=== PATIENT | male | born 1935 | race Caucasian/White ===

== ENCOUNTER → 2016-05-23 | Outpatient (CLI) | payer OTHER, MEDICARE ==
--- NOTE | 2016-05-24 13:38 | US ---
EXAM DATE: 05/23/16 PATIENT'S AGE: 81 Patient: ANDRESSA VELAZQUEZ Facility: [facility], [place] Site . Site : [id number] Study: US Head [id number] 12:08:05 PM Ordering Physician: Kolby Cruz Final Report: HISTORY: Abnormal thyroid function tests. Findings: Multiple grayscale static images from a thyroid ultrasound were evaluated. The isthmus measures 4.7 mm. The right lobe of thyroid measures 5.2 x 2.1 x 1.9 cm. The echotexture is homogeneous. The left lobe of the thyroid measures 4.7 x 2.2 x 1.9 cm. Echotexture is homogeneous. Impression: Normal appearance of the thyroid without mass lesion. Dictated by Sophia Richter MD @ May 23 2016 11:49PM (Electronic Signature) Report Signed by Proxy and Original Signed Document filed in the Medical Record. NIKOLASD
== END ==
LOC: MW.US 09:42
DX: R94.6 Abnormal results of thyroid function studies (principal)
CPT/HCPCS: 76536-26; 76536-50

== ENCOUNTER 2016-09-27 10:05 | Day surgery (SDC) | payer OTHER ==
[~2016-09-27 10:05] MED LIST: Lactated Ringers 1,000 ML IV SCH; Lidocaine 2% 5 ML SDV ONE; Propofol 200 MG/20 ML SDV ONE; fentaNYL 100 MCG/2 ML SDV ONE
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
[2016-09-27] MEDS ORDERED: Midazolam 1 MG/ML 2 ML SDV ONE (10:58)
--- NOTE | 2016-09-27 11:16 | PCM.POSTAN ---
POST ANESTHESIA ASSESSMENT - MENTAL STATUS Mental Status: Alert, Oriented - RESPIRATORY Respiratory Status: Respiratory Rate WNL, Airway Patent - CARDIOVASCULAR CV Status: Pulse Rate WNL, Blood Pressure Stable - GASTROINTESTINAL GI Status: No Symptoms - POST OP HYDRATION Hydration Status: Adequate & Stable
--- NOTE | 2016-09-27 11:17 | PCM48HPAN ---
Post Anesthesia Note - EVALUATION WITHIN 48HRS OF ANESTHETIC Vital Signs in Normal Range: Yes Patient Participated in Evaluation: Yes Respiratory Function Stable: Yes Airway Patent: Yes Cardiovascular Function Stable: Yes Hydration Status Stable: Yes Pain Control Satisfactory: Yes Nausea and Vomiting Control Satisfactory: Yes Mental Status Recovered: Yes
--- NOTE | 2016-09-27 13:13 | PCM.OPNOTE ---
- General Post-Op/Procedure Note Date of Surgery/Procedure: 09/27/16 Operative Procedure(s): egd w bx Findings: see dict [id number] Pre Op Diagnosis: dysphagia and abnormal esophagram Post-Op Diagnosis: Same Anesthesia Technique: Moderate Sedation Primary Surgeon: Narayan Choi Pathology: egd bx Complications: None Condition: Good Free Text/Narrative:: Intake & Output 09/26/16 09/27/16 09/27/16 22:59 06:59 14:59 Intake Total 350 Balance 350
--- NOTE | 2016-09-27 14:51 | OR ---
SURGEON: Narayan Choi MD DATE OF PROCEDURE: 09/27/2016 PREOPERATIVE DIAGNOSIS: Dysphagia and abnormal esophagogram. POSTOPERATIVE DIAGNOSIS: Acid reflux. PROCEDURE PERFORMED: Esophagogastroduodenoscopy with biopsy. COMPLICATIONS: None. FINDINGS: 1. The patient is easily sedated with BLINDSTITCH LAPEL PADDER and Diprivan. The patient is soundly snoring. 2. Proximal esophagus and oropharynx is totally normal in appearance and no stricture, inflammation, or ulceration. No stricture observed. Distal esophagus at GE junction at 40, shows a little bit of salmon color change consistent with acid reflux and carefully look at the distal esophagus at the GE junction, do not find any abnormality, but random biopsy x2 has been done because of the abnormal esophagogram and stomach rugae is normal in appearance and there is no bile, food, or blood observed and duodenum was grossly normal. Scope retrieved back to the stomach and retroflexed to look at the fundus of stomach, there was no hiatal hernia. Biopsy was done at antrum, body, and GE junction at 40, and sucked out the air and retrieved. DESCRIPTION OF PROCEDURE: The patient was taken to the endoscopy room, and with the BLINDSTITCH LAPEL PADDER, Diprivan was administered. A well-lubricated EGD scope was gently inserted through the oropharynx, down the esophagus, passing through the gastroesophageal junction, into the stomach. The mucosa was examined upon the passage. Any etiology will be noted. Once in the stomach, we continued to advance to the distal antrum, passed through the pylorus into the second portion of the duodenum. Again, the mucosa was examined for any abnormality and etiology. The scope was then retrieved back to the stomach and then retroflexed to look at the fundus of the stomach. If a biopsy was indicated, we will biopsy the antrum, body, and gastroesophageal junction. The air will be sucked out while the scope is retrieved to reduce the patient's discomfort. The patient tolerated the procedure well. There were no intraoperative complications. Dr. Choi was present through the whole procedure. Prior to surgery, a time-out had been called, the patient identified, procedure identified and antibiotic administered. FRANTZ / SHERI /[id number]
== END 2016-09-27 11:56 | disposition home or self-care (01) ==
LOC: MW.SDS 10:05
PROVIDERS: ATTEND Surgery
DX: K20.9 Esophagitis, unspecified (principal); E03.9 Hypothyroidism, unspecified; E11.9 Type 2 diabetes mellitus without complications; G89.4 Chronic pain syndrome; Z79.899 Other long term (current) drug therapy; Z98.52 Vasectomy status; Z96.649 Presence of unspecified artificial hip joint
CPT/HCPCS: 43239; J2250; J3010; J7120; 00740; 88305; 88312; J2704

== ENCOUNTER 2021-01-11 11:27 | Emergency (ER) | payer OTHER, MEDICARE ==
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
[2021-01-11] MEDS ORDERED: Furosemide 40 MG/4 ML VIAL IVPUSH ONE (15:05)
--- NOTE | 2021-01-11 15:26 | CR ---
INDICATION: Lower extremity swelling. Possible CHF. TECHNIQUE: Chest 1 views. COMPARISON: 02/16/2012. FINDINGS: Cardiovascular and mediastinum: Heart size and vasculature are normal in caliber and appearance. Lungs and pleural spaces: Lungs are clear. No sign of infiltrate or mass. No sign of pleural effusion. No pneumothorax. Bones and soft tissues: No significant findings. IMPRESSION: No acute findings and no significant changes from the prior exam. No signs of CHF. Dictated by Luis Eduardo Blackwell MD @ 01/11/2021 3:23:56 PM (Electronically Signed)
[2021-01-11 15:57] LABS: CARBON DIOXIDE,CO2 28.4 mmol/L (21.0-32.0); POTASSIUM,K 4.4 mmol/L (3.5-5.1)
== END 2021-01-11 17:15 | disposition home or self-care (01) ==
LOC: MW.ED 11:27
DX: R60.0 Localized edema (principal); E03.9 Hypothyroidism, unspecified; E66.9 Obesity, unspecified; Z68.27 Body mass index [BMI] 27.0-27.9, adult; Z79.899 Other long term (current) drug therapy
CPT/HCPCS: 36415; 71045; 80053; 82550; 83880; 85025; 85610; 85730; 96374; 99284; J1940

== ENCOUNTER 2021-04-08 19:33 | Emergency (ER) | payer OTHER, MEDICARE ==
[2021-04-08] MEDS ORDERED: Sodium Chloride 0.9% 10 ML Syringe FLUSH PRN (19:47)
[2021-04-08] MEDS ORDERED: Sodium Chloride 0.9% 2.5 ML Syringe FLUSH PRN (19:47)
[2021-04-08 20:36] LABS: CARBON DIOXIDE,CO2 29.7 mmol/L (21.0-32.0); POTASSIUM,K 4.4 mmol/L (3.5-5.1)
[2021-04-08] MEDS ORDERED: Iopamidol 755 MG/ML 500 ML Multipack Bottle IVPUSH ONE (20:44)
[2021-04-08 20:52] LABS: CORONAVIRUS COVID-19 NAA NEGATIVE (NEGATIVE); INFLUENZA A NAA NEGATIVE (NEGATIVE); INFLUENZA B NAA NEGATIVE (NEGATIVE)
== END 2021-04-08 22:33 | disposition home or self-care (01) ==
LOC: MW.ED 19:33
DX: I50.9 Heart failure, unspecified (principal); I48.91 Unspecified atrial fibrillation; E03.9 Hypothyroidism, unspecified; E66.9 Obesity, unspecified; N40.0 Benign prostatic hyperplasia without lower urinary tract symptoms; Z68.31 Body mass index [BMI] 31.0-31.9, adult; Z79.01 Long term (current) use of anticoagulants; Z20.822 Contact with and (suspected) exposure to COVID-19
CPT/HCPCS: 0240U; 36415; 71045; 71275; 80053; 81003; 83880; 85025; 85379; 85610; 93005; 99285; Q9967

== ENCOUNTER 2022-06-21 11:32 | Inpatient (IN) | payer OTHER, MEDICARE ==
[2022-06-21] MEDS ORDERED: Sodium Chloride 0.9% 10 ML Syringe FLUSH PRN ×2 (11:35→13:15)
[2022-06-21] MEDS ORDERED: Sodium Chloride 0.9% 2.5 ML Syringe FLUSH PRN ×2 (11:35→13:15)
[2022-06-21 12:01] LABS: BASOPHILS PERCENT AUTO 0.3 % (0.0-1.5); EOSINOPHILS ABSOLUTE AUTO 0.1 K/uL (0.0-0.7); EOSINOPHILS PERCENT AUTO 1.7 % (0.0-7.0); HEMATOCRIT 43.1 % (38.0-50.0); HEMOGLOBIN 14.1 g/dL (13.0-17.0); LYMPHOCYTES ABSOLUTE AUTO 0.5 K/uL (0.6-2.4); LYMPHOCYTES PERCENT AUTO 7.2 % (16.0-40.0); MEAN CORPUSCULAR HEMOGLOBIN 32.8 pg (27.0-32.0); MEAN CORPUSCULAR HGB CONC 32.7 g/dL (31.0-37.0); MEAN CORPUSCULAR VOLUME 100.2 fL (80.0-98.0); MONOCYTES ABSOLUTE AUTO 0.9 K/uL (0.0-0.8); MONOCYTES PERCENT AUTO 14.5 % (0.0-15.0); NEUTROPHILS ABSOLUTE AUTO 4.8 K/uL (1.4-5.7); NEUTROPHILS PERCENT AUTO 76.3 % (48.0-80.0); PLATELET COUNT,PLT 201 K/uL (150-400); WHITE BLOOD CELL COUNT,WBC 6.29 K/uL (4.0-11.0)
[2022-06-21 12:36] LABS: A/G RATIO 0.7 (0.9-1.6); ALBUMIN 3.7 g/dL (3.4-5.0); CARBON DIOXIDE,CO2 27.6 mmol/L (21.0-32.0); CREATININE 1.3 mg/dL (0.8-1.3); EST CRCL DRUG DOSING (CG) 45.6 mL/min; POTASSIUM,K 4.5 mmol/L (3.5-5.1); PROTEIN TOTAL,TP 8.8 g/dL (6.4-8.2)
[2022-06-21 12:38] LABS: LACTIC ACID 0.6 mmol/L (0.4-2.0)
[2022-06-21 12:39] LABS: CORONAVIRUS COVID-19 NAA POSITIVE (NEGATIVE); INFLUENZA A NAA NEGATIVE (NEGATIVE); INFLUENZA B NAA NEGATIVE (NEGATIVE); RESPIRATORY SYNCYTIAL VIR NAA NEGATIVE (NEGATIVE)
[2022-06-21 12:46] LABS: INR 1.36 (0.86-1.11)
[2022-06-21] MEDS ORDERED: Ondansetron 4 MG/2 ML SDV IVPUSH PRN (13:15)
[2022-06-21] MEDS ORDERED: Acetaminophen 325 MG Tab PO PRN (13:15)
[2022-06-21] MEDS ORDERED: Albuterol/Ipratropium 3.0-0.5 MG/3 ML Neb Soln NEB PRN (14:00)
[2022-06-21] MEDS ORDERED: REMDESIVIR 200 MG in Sodium Chloride 0.9% 250 ML IV ONE (14:00)
[2022-06-21] MEDS ORDERED: LORazepam 2 MG/ML SDV IVPUSH PRN (14:09)
[2022-06-21] MEDS ORDERED: guaiFENesin/Dextromethorphan 100-10 MG/5 ML Soln 10 ML Cup PO PRN (14:10)
[2022-06-21] MEDS ORDERED: Benzonatate 100 MG Cap PO PRN (14:10)
[2022-06-21] MEDS ORDERED: Warfarin 5 MG Tab PO SCH (14:30)
[2022-06-21] MEDS: Warfarin Sliding Scale SCH (14:52)
[2022-06-21] MEDS: Folic Acid 1 MG Tab PO SCH (20:34)
[2022-06-21] MEDS: Thiamine 100 MG Tab PO SCH (20:34)
[2022-06-22] MEDS: Levothyroxine 100 MCG Tab PO SCH (06:29)
[2022-06-22 06:44] LABS: INR 1.27 (0.86-1.11)
[2022-06-22 06:59] LABS: BASOPHILS PERCENT AUTO 0.4 % (0.0-1.5); EOSINOPHILS PERCENT AUTO 0.6 % (0.0-7.0); HEMATOCRIT 43.6 % (38.0-50.0); HEMOGLOBIN 14.8 g/dL (13.0-17.0); LYMPHOCYTES ABSOLUTE AUTO 0.7 K/uL (0.6-2.4); LYMPHOCYTES PERCENT AUTO 13.7 % (16.0-40.0); MEAN CORPUSCULAR HEMOGLOBIN 33.2 pg (27.0-32.0); MEAN CORPUSCULAR HGB CONC 33.9 g/dL (31.0-37.0); MEAN CORPUSCULAR VOLUME 97.8 fL (80.0-98.0); MONOCYTES ABSOLUTE AUTO 1.1 K/uL (0.0-0.8); NEUTROPHILS ABSOLUTE AUTO 3.1 K/uL (1.4-5.7); NEUTROPHILS PERCENT AUTO 63.3 % (48.0-80.0); PLATELET COUNT,PLT 193 K/uL (150-400); RED BLOOD CELL COUNT 4.46 M/uL (4.50-5.90); WHITE BLOOD CELL COUNT,WBC 4.82 K/uL (4.0-11.0)
[2022-06-22 07:00] LABS: A/G RATIO 0.7 (0.9-1.6); ALBUMIN 3.4 g/dL (3.4-5.0); BILIRUBIN TOTAL 0.9 mg/dL (0.2-1.0); CALCIUM 8.8 mg/dL (8.5-10.1); CARBON DIOXIDE,CO2 26.8 mmol/L (21.0-32.0); CREATININE 1.2 mg/dL (0.8-1.3); EST CRCL DRUG DOSING (CG) 49.4 mL/min; MAGNESIUM 2.1 mg/dL (1.8-2.4); PHOSPHORUS 3.2 mg/dL (2.6-4.7); POTASSIUM,K 4.8 mmol/L (3.5-5.1); PROTEIN TOTAL,TP 8.4 g/dL (6.4-8.2)
[2022-06-22] MEDS: Furosemide 40 MG Tab PO SCH (08:31)
[2022-06-22] MEDS: Diltiazem 120 MG Cap.CD PO SCH (08:32)
[2022-06-22 12:15] LABS: APPEARANCE,URINE CLEAR; BILIRUBIN,URINE NEGATIVE (NEGATIVE); COLOR,URINE YELLOW; GLUCOSE,URINE NEGATIVE (NEGATIVE); KETONES,URINE TRACE mg/dL (NEGATIVE); LEUKOCYTE ESTERASE,URINE NEGATIVE (NEGATIVE); NITRITE,URINE NEGATIVE (NEGATIVE); OCCULT BLOOD,URINE SMALL (NEGATIVE); PROTEIN,URINE NEGATIVE (NEGATIVE); UROBILINOGEN,URINE 0.2 EU/dL (<2.0)
[2022-06-22 12:34] LABS: EPITHELIAL CELLS,URINE FEW (NONE-FEW); SQUAMOUS EPITHELIAL CELLS,UR FEW; WBC,URINE NONE SEEN (0-5/HPF)
[2022-06-22 12:35] LABS: BACTERIA,URINE FEW (NEGATIVE); MUCUS,URINE FEW (NONE-MOD)
[2022-06-22] MEDS: Warfarin Sliding Scale SCH (13:27)
[2022-06-22] MEDS ORDERED: REMDESIVIR 100 MG in Sodium Chloride 0.9% 100 ML IV SCH (14:00)
[2022-06-22] MEDS ORDERED: Warfarin 5 MG, Warfarin 2.5 MG PO ONE ×2 (14:00)
[2022-06-22] MEDS: Folic Acid 1 MG Tab PO SCH (21:26)
[2022-06-22] MEDS: Thiamine 100 MG Tab PO SCH (21:26)
[2022-06-23 06:02] LABS: INR 1.33 (0.86-1.11)
[2022-06-23] MEDS: Levothyroxine 100 MCG Tab PO SCH ×2 (06:12→06:30)
[2022-06-23] MEDS: Diltiazem 120 MG Cap.CD PO SCH (08:43)
[2022-06-23] MEDS: Furosemide 40 MG Tab PO SCH (08:45)
[2022-06-23] MEDS ORDERED: REMDESIVIR 100 MG in Sodium Chloride 0.9% 100 ML IV SCH (10:45)
[2022-06-23] MEDS ORDERED: Warfarin 5 MG, Warfarin 2.5 MG PO ONE ×2 (11:15)
[2022-06-23] MEDS: Warfarin Sliding Scale SCH (14:05)
== END 2022-06-23 13:30 | disposition home or self-care (01) | DRG 178 ==
LOC: MW.ED 11:32 → MW.MS 13:01
PROVIDERS: ADMIT Internal Medicine; ATTEND Internal Medicine
PROC: XW033E5 Introduction of Remdesivir Anti-infective into Peripheral Vein, Percutaneous Approach, New Technology Group 5 (ICD-10-PCS; principal; 2022-06-21)
PROC: 8E0ZXY6 Isolation (ICD-10-PCS; 2022-06-21)
DX: U07.1 COVID-19 (principal); I48.21 Permanent atrial fibrillation; F10.10 Alcohol abuse, uncomplicated; I25.10 Atherosclerotic heart disease of native coronary artery without angina pectoris; N40.0 Benign prostatic hyperplasia without lower urinary tract symptoms; E03.9 Hypothyroidism, unspecified; E66.9 Obesity, unspecified; Z96.649 Presence of unspecified artificial hip joint; Z96.619 Presence of unspecified artificial shoulder joint; Z79.890 Hormone replacement therapy; Z91.148 Patient's other noncompliance with medication regimen for other reason; Z68.25 Body mass index [BMI] 25.0-25.9, adult; Z79.01 Long term (current) use of anticoagulants; Z79.899 Other long term (current) drug therapy
CPT/HCPCS: 0241U; 36415; 71046; 71046-26; 80053; 81001; 83605; 83735; 83880; 84100; 84484; 85025; 85610; 87040; 93005; 93010; 97116-GP; 97161-GP; 99222; 99232; 99238; 99284; 99285; A9270-GY; J0248; J3490; J7050

== ENCOUNTER 2022-08-08 10:14 | Emergency (ER) | payer MEDICARE, OTHER ==
[2022-08-08 11:40] LABS: APPEARANCE,URINE CLEAR; BILIRUBIN,URINE NEGATIVE (NEGATIVE); COLOR,URINE YELLOW; GLUCOSE,URINE NEGATIVE (NEGATIVE); KETONES,URINE NEGATIVE (NEGATIVE); LEUKOCYTE ESTERASE,URINE NEGATIVE (NEGATIVE); NITRITE,URINE NEGATIVE (NEGATIVE); OCCULT BLOOD,URINE NEGATIVE (NEGATIVE); PROTEIN,URINE NEGATIVE (NEGATIVE)
[2022-08-08 11:43] LABS: BASOPHILS ABSOLUTE AUTO 0.1 K/uL (0.0-0.1); BASOPHILS PERCENT AUTO 0.8 % (0.0-1.5); EOSINOPHILS ABSOLUTE AUTO 0.5 K/uL (0.0-0.7); EOSINOPHILS PERCENT AUTO 7.6 % (0.0-7.0); HEMATOCRIT 43.8 % (38.0-50.0); HEMOGLOBIN 14.5 g/dL (13.0-17.0); LYMPHOCYTES PERCENT AUTO 16.9 % (16.0-40.0); MEAN CORPUSCULAR HEMOGLOBIN 32.4 pg (27.0-32.0); MEAN CORPUSCULAR HGB CONC 33.1 g/dL (31.0-37.0); MEAN CORPUSCULAR VOLUME 97.8 fL (80.0-98.0); MONOCYTES ABSOLUTE AUTO 0.7 K/uL (0.0-0.8); MONOCYTES PERCENT AUTO 11.5 % (0.0-15.0); NEUTROPHILS ABSOLUTE AUTO 3.7 K/uL (1.4-5.7); NEUTROPHILS PERCENT AUTO 63.2 % (48.0-80.0); NRBC ABSOLUTE 0 K/uL; PLATELET COUNT,PLT 231 K/uL (150-400); RED BLOOD CELL COUNT 4.48 M/uL (4.50-5.90)
[2022-08-08 12:19] LABS: A/G RATIO 0.7 (0.9-1.6); ALBUMIN 3.5 g/dL (3.4-5.0); BILIRUBIN TOTAL 0.7 mg/dL (0.2-1.0); CALCIUM 8.9 mg/dL (8.5-10.1); CARBON DIOXIDE,CO2 27.7 mmol/L (21.0-32.0); CREATININE 1.2 mg/dL (0.8-1.3); EST CRCL DRUG DOSING (CG) 49.4 mL/min; POTASSIUM,K 4.2 mmol/L (3.5-5.1); PROTEIN TOTAL,TP 8.3 g/dL (6.4-8.2)
[2022-08-08 12:30] LABS: MAGNESIUM 2.1 mg/dL (1.8-2.4); TSH ULTRASENSITIVE 3.26 uIU/mL (0.36-3.74)
== END 2022-08-08 13:42 | disposition home or self-care (01) ==
LOC: MW.ED 10:14
DX: R53.1 Weakness (principal); I48.91 Unspecified atrial fibrillation; E66.9 Obesity, unspecified; Z79.01 Long term (current) use of anticoagulants
CPT/HCPCS: 36415; 71046; 71046-26; 80053; 81003; 83735; 84443; 85025; 93005; 93010; 99285

== ENCOUNTER 2022-09-16 17:31 | Observation (INO) | payer MEDICARE ==
[2022-09-16] MEDS ORDERED: Sodium Chloride 0.9% 2.5 ML Syringe FLUSH PRN ×2 (17:39)
[2022-09-16] MEDS ORDERED: Sodium Chloride 0.9% 10 ML Syringe FLUSH PRN ×2 (17:39)
[2022-09-16] MEDS ORDERED: Diphtheria,Pertussis(Acell),Tetanus Vaccine 0.5 ML Syringe IM ONE (17:39)
[2022-09-16] MEDS ORDERED: Morphine 4 MG/ML Syringe IVPUSH ONE (17:41)
[2022-09-16] MEDS ORDERED: Ondansetron 4 MG/2 ML SDV IVPUSH ONE (17:41)
[2022-09-16 18:25] LABS: BASOPHILS PERCENT AUTO 0.7 % (0.0-1.5); EOSINOPHILS ABSOLUTE AUTO 0.5 K/uL (0.0-0.7); EOSINOPHILS PERCENT AUTO 7.6 % (0.0-7.0); HEMATOCRIT 43.6 % (38.0-50.0); HEMOGLOBIN 14.7 g/dL (13.0-17.0); LYMPHOCYTES ABSOLUTE AUTO 1.4 K/uL (0.6-2.4); LYMPHOCYTES PERCENT AUTO 24.2 % (16.0-40.0); MEAN CORPUSCULAR HEMOGLOBIN 32.7 pg (27.0-32.0); MEAN CORPUSCULAR HGB CONC 33.7 g/dL (31.0-37.0); MEAN CORPUSCULAR VOLUME 96.9 fL (80.0-98.0); MONOCYTES ABSOLUTE AUTO 0.6 K/uL (0.0-0.8); MONOCYTES PERCENT AUTO 10.2 % (0.0-15.0); NEUTROPHILS ABSOLUTE AUTO 3.4 K/uL (1.4-5.7); NEUTROPHILS PERCENT AUTO 57.3 % (48.0-80.0); NRBC ABSOLUTE 0 K/uL; PLATELET COUNT,PLT 226 K/uL (150-400); WHITE BLOOD CELL COUNT,WBC 5.96 K/uL (4.0-11.0)
[2022-09-16 18:56] LABS: INR 1.19 (0.86-1.11)
[2022-09-16 19:09] LABS: A/G RATIO 0.7 (0.9-1.6); ALBUMIN 3.7 g/dL (3.4-5.0); BILIRUBIN TOTAL 0.4 mg/dL (0.2-1.0); CALCIUM 8.6 mg/dL (8.5-10.1); CARBON DIOXIDE,CO2 26.6 mmol/L (21.0-32.0); CREATININE 1.2 mg/dL (0.8-1.3); EST CRCL DRUG DOSING (CG) 49.4 mL/min; POTASSIUM,K 4.3 mmol/L (3.5-5.1); PROTEIN TOTAL,TP 8.7 g/dL (6.4-8.2)
[2022-09-16 21:33] LABS: BASOPHILS ABSOLUTE AUTO 0.1 K/uL (0.0-0.1); BASOPHILS PERCENT AUTO 0.9 % (0.0-1.5); EOSINOPHILS ABSOLUTE AUTO 0.5 K/uL (0.0-0.7); EOSINOPHILS PERCENT AUTO 6.9 % (0.0-7.0); HEMATOCRIT 39.3 % (38.0-50.0); HEMOGLOBIN 13.1 g/dL (13.0-17.0); LYMPHOCYTES ABSOLUTE AUTO 1.7 K/uL (0.6-2.4); LYMPHOCYTES PERCENT AUTO 25.6 % (16.0-40.0); MEAN CORPUSCULAR HEMOGLOBIN 32.2 pg (27.0-32.0); MEAN CORPUSCULAR HGB CONC 33.3 g/dL (31.0-37.0); MEAN CORPUSCULAR VOLUME 96.6 fL (80.0-98.0); MONOCYTES ABSOLUTE AUTO 0.6 K/uL (0.0-0.8); NEUTROPHILS ABSOLUTE AUTO 3.8 K/uL (1.4-5.7); NEUTROPHILS PERCENT AUTO 57.6 % (48.0-80.0); NRBC ABSOLUTE 0 K/uL; PLATELET COUNT,PLT 211 K/uL (150-400); RED BLOOD CELL COUNT 4.07 M/uL (4.50-5.90); WHITE BLOOD CELL COUNT,WBC 6.52 K/uL (4.0-11.0)
[2022-09-17 04:04] LABS: BASOPHILS PERCENT AUTO 0.3 % (0.0-1.5); EOSINOPHILS ABSOLUTE AUTO 0.1 K/uL (0.0-0.7); EOSINOPHILS PERCENT AUTO 0.9 % (0.0-7.0); HEMOGLOBIN 13.8 g/dL (13.0-17.0); LYMPHOCYTES ABSOLUTE AUTO 0.9 K/uL (0.6-2.4); MEAN CORPUSCULAR HEMOGLOBIN 32.5 pg (27.0-32.0); MEAN CORPUSCULAR HGB CONC 33.7 g/dL (31.0-37.0); MEAN CORPUSCULAR VOLUME 96.7 fL (80.0-98.0); MONOCYTES ABSOLUTE AUTO 0.8 K/uL (0.0-0.8); MONOCYTES PERCENT AUTO 9.2 % (0.0-15.0); NEUTROPHILS ABSOLUTE AUTO 6.9 K/uL (1.4-5.7); NEUTROPHILS PERCENT AUTO 79.6 % (48.0-80.0); NRBC ABSOLUTE 0 K/uL; PLATELET COUNT,PLT 201 K/uL (150-400); RED BLOOD CELL COUNT 4.24 M/uL (4.50-5.90); WHITE BLOOD CELL COUNT,WBC 8.63 K/uL (4.0-11.0)
[2022-09-17 04:34] LABS: APPEARANCE,URINE CLEAR; BILIRUBIN,URINE NEGATIVE (NEGATIVE); COLOR,URINE YELLOW; GLUCOSE,URINE NEGATIVE (NEGATIVE); KETONES,URINE NEGATIVE (NEGATIVE); LEUKOCYTE ESTERASE,URINE NEGATIVE (NEGATIVE); NITRITE,URINE NEGATIVE (NEGATIVE); OCCULT BLOOD,URINE SMALL (NEGATIVE); PROTEIN,URINE NEGATIVE (NEGATIVE)
[2022-09-17 05:02] LABS: BACTERIA,URINE FEW (NEGATIVE); EPITHELIAL CELLS,URINE RARE (NONE-FEW); WBC,URINE 0-2 (0-5/HPF)
[2022-09-17] MEDS ORDERED: Sodium Chloride 0.9% 2.5 ML Syringe FLUSH PRN (08:46)
[2022-09-17] MEDS ORDERED: Ondansetron 4 MG/2 ML SDV IVPUSH PRN (08:46)
[2022-09-17] MEDS ORDERED: LORazepam 2 MG/ML SDV IVPUSH PRN ×2 (08:46→12:54)
[2022-09-17] MEDS ORDERED: Acetaminophen 325 MG Tab PO PRN (08:46)
[2022-09-17] MEDS ORDERED: Polyethylene Glycol 3350 Powder 17 GM Packet PO PRN (08:46)
[2022-09-17] MEDS ORDERED: Albuterol/Ipratropium 3.0-0.5 MG/3 ML Neb Soln NEB PRN (08:46)
[2022-09-17] MEDS ORDERED: Sodium Chloride 0.9% 10 ML Syringe FLUSH PRN (08:46)
[2022-09-17] MEDS ORDERED: Iopamidol 755 Mg/ML 100 ML Bottle IVPUSH ONE (11:02)
[2022-09-17] MEDS: Diltiazem 120 MG Cap.CD PO SCH (16:05)
[2022-09-17] MEDS ORDERED: Folic Acid 1 MG Tab PO SCH (21:00)
[2022-09-17] MEDS ORDERED: Thiamine 100 MG Tab PO SCH (21:00)
[2022-09-18 05:54] LABS: BASOPHILS PERCENT AUTO 0.6 % (0.0-1.5); EOSINOPHILS ABSOLUTE AUTO 0.3 K/uL (0.0-0.7); EOSINOPHILS PERCENT AUTO 3.7 % (0.0-7.0); HEMATOCRIT 36.7 % (38.0-50.0); HEMOGLOBIN 11.9 g/dL (13.0-17.0); LYMPHOCYTES ABSOLUTE AUTO 1.5 K/uL (0.6-2.4); LYMPHOCYTES PERCENT AUTO 20.9 % (16.0-40.0); MEAN CORPUSCULAR HEMOGLOBIN 31.3 pg (27.0-32.0); MEAN CORPUSCULAR HGB CONC 32.4 g/dL (31.0-37.0); MEAN CORPUSCULAR VOLUME 96.6 fL (80.0-98.0); MONOCYTES ABSOLUTE AUTO 0.6 K/uL (0.0-0.8); MONOCYTES PERCENT AUTO 9.1 % (0.0-15.0); NEUTROPHILS ABSOLUTE AUTO 4.6 K/uL (1.4-5.7); NEUTROPHILS PERCENT AUTO 65.7 % (48.0-80.0); NRBC ABSOLUTE 0 K/uL; PLATELET COUNT,PLT 207 K/uL (150-400); WHITE BLOOD CELL COUNT,WBC 7.04 K/uL (4.0-11.0)
[2022-09-18 06:14] LABS: CALCIUM 8.3 mg/dL (8.5-10.1); CARBON DIOXIDE,CO2 27.5 mmol/L (21.0-32.0); CREATININE 1.2 mg/dL (0.8-1.3); EST CRCL DRUG DOSING (CG) 49.4 mL/min; POTASSIUM,K 4.5 mmol/L (3.5-5.1)
[2022-09-18] MEDS: Levothyroxine 100 MCG Tab PO SCH ×2 (06:24→06:39)
[2022-09-18] MEDS: Diltiazem 120 MG Cap.CD PO SCH (08:04)
== END 2022-09-18 09:15 | disposition left against medical advice (07) ==
LOC: MW.ED 17:31 → MW.MS 09-17 04:21
PROVIDERS: ADMIT Family Medicine; ATTEND Family Medicine
DX: S81.812A Laceration without foreign body, left lower leg, initial encounter (principal); I50.9 Heart failure, unspecified; R53.1 Weakness; I48.21 Permanent atrial fibrillation; E03.9 Hypothyroidism, unspecified; E66.9 Obesity, unspecified; R55 Syncope and collapse; Z79.01 Long term (current) use of anticoagulants; F10.10 Alcohol abuse, uncomplicated; W18.30XA Fall on same level, unspecified, initial encounter; Z86.16 Personal history of COVID-19; Z79.890 Hormone replacement therapy; Z68.25 Body mass index [BMI] 25.0-25.9, adult; Z96.649 Presence of unspecified artificial hip joint; Z96.619 Presence of unspecified artificial shoulder joint; Z79.899 Other long term (current) drug therapy; Z90.89 Acquired absence of other organs
CPT/HCPCS: 12005; 36415; 70450; 71045; 72125; 72170; 73590; 73701; 80048; 80053; 80307; 81001; 82947; 83735; 85025; 85610; 86850; 86900; 86901; 90471; 90715; 93005; 96374; 96375; 99285; A9270; G0378; J2270; J2405; J3490; Q9967; 93010; 99284

== ENCOUNTER 2022-09-19 10:16 | Emergency (ER) | payer MEDICARE | END 2022-09-19 11:49 | disposition home or self-care (01) | LOC: MW.ED 10:16 | DX: S81.812D Laceration without foreign body, left lower leg, subsequent encounter (principal); Z48.01 Encounter for change or removal of surgical wound dressing; I48.91 Unspecified atrial fibrillation; E03.9 Hypothyroidism, unspecified; E66.9 Obesity, unspecified; Z68.26 Body mass index [BMI] 26.0-26.9, adult; Z79.01 Long term (current) use of anticoagulants; Z79.899 Other long term (current) drug therapy; W26.8XXD Contact with other sharp object(s), not elsewhere classified, subsequent encounter | CPT/HCPCS: 99282; 99283 ==

== ENCOUNTER 2023-01-15 12:45 | Emergency (ER) | payer MEDICARE ==
[2023-01-15 12:57] LABS: BASOPHILS ABSOLUTE AUTO 0.04 K/uL (0.00-0.20); BASOPHILS PERCENT AUTO 1.1 % (0.0-1.0); EOSINOPHILS ABSOLUTE AUTO 0.13 K/uL (0.00-0.45); EOSINOPHILS PERCENT AUTO 3.7 % (0.0-6.0); HEMATOCRIT 35.5 % (42.0-52.0); HEMOGLOBIN 11.5 g/dL (14.0-18.0); IMMATURE GRAN ABSOLUTE AUTO 0.03 K/uL (0.00-0.05); IMMATURE GRAN PERCENT AUTO 0.9 % (0.0-0.4); LYMPHOCYTES ABSOLUTE AUTO 0.73 K/uL (1.00-4.80); MEAN CORPUSCULAR HEMOGLOBIN 30.5 pg (28.0-32.0); MEAN CORPUSCULAR HGB CONC 32.4 g/dL (32.0-36.0); MEAN CORPUSCULAR VOLUME 94.2 fL (83.0-99.0); MEAN PLATELET VOLUME 10.5 fL (9.4-12.4); MONOCYTES ABSOLUTE AUTO 0.49 K/uL (0.00-0.80); MONOCYTES PERCENT AUTO 14.1 % (0.0-8.0); NEUTROPHILS ABSOLUTE AUTO 2.06 K/uL (1.80-7.70); NEUTROPHILS PERCENT AUTO 59.2 % (41.0-71.0); PLATELET COUNT,PLT 201 K/uL (150-400); RED BLOOD CELL COUNT 3.77 M/uL (4.52-5.90); WHITE BLOOD CELL COUNT,WBC 3.48 K/uL (3.9-11.3)
[2023-01-15 13:10] LABS: INR 1.83 (0.86-1.11)
[2023-01-15 13:25] LABS: A/G RATIO 0.7 (0.9-1.6); ALANINE AMINOTRANSFERASE,ALT 20 IU/L (14-63); ALBUMIN 3.3 g/dL (3.4-5.0); ALKALINE PHOSPHATASE 154 U/L (46-116); ASPARTATE AMNIOTRANSFERASE,AST 27 IU/L (15-37); BILIRUBIN TOTAL 1.4 mg/dL (0.2-1.0); BLOOD UREA NITROGEN,BUN 27 mg/dL (7.0-18.0); CALCIUM 8.8 mg/dL (8.5-10.1); CARBON DIOXIDE,CO2 27.8 mmol/L (21.0-32.0); CHLORIDE,CL 105 mmol/L (98-107); CREATININE 1.4 mg/dL (0.8-1.3); EST CRCL DRUG DOSING (CG) 42.34 mL/min; ESTIMATED GFR 49 mL/min (>60); ETHANOL BLOOD MEDICAL <3 mg/dL; GLUCOSE RANDOM 147 mg/dL (74-106); POTASSIUM,K 4.1 mmol/L (3.5-5.1); SODIUM,NA 138 mmol/L (136-148)
== END 2023-01-15 14:20 | disposition home or self-care (01) ==
LOC: MW.ED 12:45
DX: S09.90XA Unspecified injury of head, initial encounter (principal); I48.91 Unspecified atrial fibrillation; E03.9 Hypothyroidism, unspecified; E66.9 Obesity, unspecified; Z68.27 Body mass index [BMI] 27.0-27.9, adult; Z79.01 Long term (current) use of anticoagulants; Z79.899 Other long term (current) drug therapy; W01.198A Fall on same level from slipping, tripping and stumbling with subsequent striking against other object, initial encounter; Y93.01 Activity, walking, marching and hiking; Y92.59 Other trade areas as the place of occurrence of the external cause
CPT/HCPCS: 36415; 70450; 70450-26; 72125; 72125-26; 80053; 80307; 83735; 84484; 85025; 85610; 99282; 99285

== ENCOUNTER 2023-03-16 08:56 | Inpatient (IN) | payer OTHER, MEDICARE ==
[2023-03-16] MEDS ORDERED: Sodium Chloride 0.9% 10 ML Syringe FLUSH PRN (09:18)
[2023-03-16] MEDS ORDERED: Sodium Chloride 0.9% 2.5 ML Syringe FLUSH PRN (09:18)
[2023-03-16 09:30] LABS: HEMATOCRIT 37.3 % (42.0-52.0); HEMOGLOBIN 11.7 g/dL (14.0-18.0); MEAN CORPUSCULAR HEMOGLOBIN 30.5 pg (28.0-32.0); MEAN CORPUSCULAR HGB CONC 31.4 g/dL (32.0-36.0); MEAN CORPUSCULAR VOLUME 97.4 fL (83.0-99.0); MEAN PLATELET VOLUME 10.2 fL (9.4-12.4); PLATELET COUNT,PLT 190 K/uL (150-400); RED BLOOD CELL COUNT 3.83 M/uL (4.52-5.90); WHITE BLOOD CELL COUNT,WBC 2.45 K/uL (3.9-11.3)
[2023-03-16] MEDS ORDERED: Nitroglycerin 0.4 MG Tab.SL SL ONE (09:32)
[2023-03-16] MEDS ORDERED: Furosemide 40 MG/4 ML VIAL IVPUSH ONE (09:32)
[2023-03-16 09:49] LABS: INR 2.29 (0.86-1.11)
[2023-03-16 10:10] LABS: A/G RATIO 0.6 (0.9-1.6); ALBUMIN 3.2 g/dL (3.4-5.0); BILIRUBIN TOTAL 1.5 mg/dL (0.2-1.0); CALCIUM 8.7 mg/dL (8.5-10.1); CARBON DIOXIDE,CO2 27.7 mmol/L (21.0-32.0); CREATININE 1.5 mg/dL (0.8-1.3); EST CRCL DRUG DOSING (CG) 37.65 mL/min; POTASSIUM,K 4.2 mmol/L (3.5-5.1); PROTEIN TOTAL,TP 8.5 g/dL (6.4-8.2)
[2023-03-16 10:20] LABS: BAND ABSOLUTE MAN 0.02; BAND PERCENT MAN 1 %; BASOPHILS ABSOLUTE MAN 0.05 K/uL (0.00-0.20); BASOPHILS PERCENT MAN 2 % (0-1); EOSINOPHILS ABSOLUTE MAN 0.02 K/uL (0.00-0.45); EOSINOPHILS PERCENT MAN 1 % (0-6); LYMPHOCYTES ABSOLUTE MAN 0.61 K/uL (1.00-4.80); LYMPHOCYTES PERCENT MAN 25 % (24-44); MONOCYTES ABSOLUTE MAN 0.47 K/uL (0.00-0.80); MONOCYTES PERCENT MAN 19 % (0-8); SEG NEUTROPHILS ABSOLUTE MAN 1.27 K/uL (1.80-7.70); SEG NEUTROPHILS PERCENT MAN 52 % (41-71)
[2023-03-16 10:54] LABS: APPEARANCE,URINE CLEAR; BILIRUBIN,URINE NEGATIVE (NEGATIVE); COLOR,URINE YELLOW; GLUCOSE,URINE NEGATIVE (NEGATIVE); KETONES,URINE NEGATIVE (NEGATIVE); LEUKOCYTE ESTERASE,URINE NEGATIVE (NEGATIVE); NITRITE,URINE NEGATIVE (NEGATIVE); OCCULT BLOOD,URINE NEGATIVE (NEGATIVE); PROTEIN,URINE NEGATIVE (NEGATIVE)
[2023-03-16 11:30] LABS: INFLUENZA A NAA NEGATIVE (NEGATIVE); INFLUENZA B NAA NEGATIVE (NEGATIVE)
[2023-03-16] MEDS ORDERED: methylPREDNISolone Sodium Succinate 125 MG/2 ML SDV IVPUSH ONE (11:39)
[2023-03-16] MEDS ORDERED: Ipratropium 0.02% 0.5 MG/2.5 ML Neb Soln NEB ONE (11:39)
[2023-03-16] MEDS ORDERED: Albuterol 0.083% 2.5 MG/3 ML Neb Soln NEB ONE (11:46)
[2023-03-16] MEDS ORDERED: Iopamidol 755 MG/ML 500 ML Multipack Bottle IVPUSH STA (12:40)
[2023-03-16] MEDS ORDERED: Ondansetron 4 MG/2 ML SDV IVPUSH PRN (14:32)
[2023-03-16] MEDS ORDERED: Acetaminophen 325 MG Tab PO PRN (14:32)
[2023-03-16] MEDS ORDERED: Pantoprazole 40 MG in Sodium Chloride 0.9% 10 ML IVPUSH SCH (14:45)
[2023-03-16] MEDS: Azithromycin 500 MG in Sodium Chloride 0.9% 250 ML IV SCH (15:49)
[2023-03-16] MEDS: cefTRIAXone 1 GM in Sodium Chloride 0.9% 50 ML IV SCH (16:51)
[2023-03-16] MEDS: Albuterol/Ipratropium 3.0-0.5 MG/3 ML Neb Soln NEB SCH ×2 (17:42→21:00)
[2023-03-17] MEDS: Albuterol/Ipratropium 3.0-0.5 MG/3 ML Neb Soln NEB SCH (02:37)
[2023-03-17 06:04] LABS: HEMATOCRIT 33.8 % (42.0-52.0); HEMOGLOBIN 10.8 g/dL (14.0-18.0); MEAN CORPUSCULAR HEMOGLOBIN 30.4 pg (28.0-32.0); MEAN CORPUSCULAR VOLUME 95.2 fL (83.0-99.0); MEAN PLATELET VOLUME 10.2 fL (9.4-12.4); RED BLOOD CELL COUNT 3.55 M/uL (4.52-5.90); WHITE BLOOD CELL COUNT,WBC 1.91 K/uL (3.9-11.3)
[2023-03-17 06:43] LABS: BAND ABSOLUTE MAN 0.34; SEG NEUTROPHILS PERCENT MAN 68 % (41-71)
[2023-03-17 06:44] LABS: BASOPHILS ABSOLUTE MAN 0.02 K/uL (0.00-0.20); BASOPHILS PERCENT MAN 1 % (0-1); LYMPHOCYTES ABSOLUTE MAN 0.34 K/uL (1.00-4.80); LYMPHOCYTES PERCENT MAN 18 % (24-44); MONOCYTES ABSOLUTE MAN 0.25 K/uL (0.00-0.80); MONOCYTES PERCENT MAN 13 % (0-8); PLATELET COUNT,PLT 177 K/uL (150-400)
[2023-03-17 06:45] LABS: A/G RATIO 0.6 (0.9-1.6); ALBUMIN 2.8 g/dL (3.4-5.0); BILIRUBIN TOTAL 0.9 mg/dL (0.2-1.0); CALCIUM 8.2 mg/dL (8.5-10.1); CREATININE 1.6 mg/dL (0.8-1.3); EST CRCL DRUG DOSING (CG) 36.38 mL/min; POTASSIUM,K 3.2 mmol/L (3.5-5.1); PROTEIN TOTAL,TP 7.9 g/dL (6.4-8.2)
[2023-03-17] MEDS ORDERED: Potassium Chloride 20 MEQ Tab.ER PO ONE (07:16)
[2023-03-17] MEDS ORDERED: Levothyroxine 100 MCG Tab PO SCH (07:30)
[2023-03-17] MEDS ORDERED: Pantoprazole 40 MG Tab.CR PO SCH (09:00)
[2023-03-17] MEDS ORDERED: methylPREDNISolone Sodium Succinate 40 MG/1 ML SDV IVPUSH SCH (09:00)
[2023-03-17] MEDS ORDERED: Diltiazem 120 MG Cap.CD PO SCH (09:00)
[2023-03-17] MEDS ORDERED: Folic Acid 1 MG/0.2 ML UD Syringe IV SCH (10:15)
[2023-03-17] MEDS ORDERED: Furosemide 20 MG/2 ML VIAL IVPUSH ONE (10:23)
[2023-03-17] MEDS ORDERED: Warfarin Sliding Scale PO SCH (14:00)
[2023-03-17] MEDS ORDERED: Furosemide 20 MG/2 ML VIAL ONE (14:02)
[2023-03-17] MEDS: Azithromycin 500 MG in Sodium Chloride 0.9% 250 ML IV SCH (14:14)
[2023-03-17] MEDS ORDERED: Warfarin 5 MG Tab PO SCH (15:15)
[2023-03-17] MEDS: Albuterol/Ipratropium 3.0-0.5 MG/3 ML Neb Soln NEB PRN ×2 (15:58→20:06)
[2023-03-17] MEDS: cefTRIAXone 1 GM in Sodium Chloride 0.9% 50 ML IV SCH (16:27)
[2023-03-17] MEDS: Furosemide 20 MG/2 ML VIAL IVPUSH SCH ×2 (20:06→20:16)
[2023-03-17] MEDS ORDERED: Thiamine 100 MG Tab PO SCH (21:00)
[2023-03-18] MEDS: Albuterol/Ipratropium 3.0-0.5 MG/3 ML Neb Soln NEB PRN (03:44)
[2023-03-18 06:03] LABS: HEMATOCRIT 36.5 % (42.0-52.0); HEMOGLOBIN 11.6 g/dL (14.0-18.0); IMMATURE GRAN ABSOLUTE AUTO 0.05 K/uL (0.00-0.05); IMMATURE GRAN PERCENT AUTO 0.6 % (0.0-0.4); LYMPHOCYTES ABSOLUTE AUTO 0.51 K/uL (1.00-4.80); LYMPHOCYTES PERCENT AUTO 6.2 % (24.0-44.0); MEAN CORPUSCULAR HEMOGLOBIN 30.6 pg (28.0-32.0); MEAN CORPUSCULAR HGB CONC 31.8 g/dL (32.0-36.0); MEAN CORPUSCULAR VOLUME 96.3 fL (83.0-99.0); MEAN PLATELET VOLUME 10.6 fL (9.4-12.4); MONOCYTES ABSOLUTE AUTO 0.59 K/uL (0.00-0.80); MONOCYTES PERCENT AUTO 7.2 % (0.0-8.0); NEUTROPHILS ABSOLUTE AUTO 7.03 K/uL (1.80-7.70); PLATELET COUNT,PLT 188 K/uL (150-400); RED BLOOD CELL COUNT 3.79 M/uL (4.52-5.90); WHITE BLOOD CELL COUNT,WBC 8.18 K/uL (3.9-11.3)
[2023-03-18 06:17] LABS: INR 3.29 (0.86-1.11)
[2023-03-18 06:33] LABS: A/G RATIO 0.6 (0.9-1.6); ALBUMIN 3.1 g/dL (3.4-5.0); BILIRUBIN TOTAL 0.7 mg/dL (0.2-1.0); CALCIUM 8.6 mg/dL (8.5-10.1); CARBON DIOXIDE,CO2 25.1 mmol/L (21.0-32.0); CREATININE 1.6 mg/dL (0.8-1.3); EST CRCL DRUG DOSING (CG) 36.38 mL/min; POTASSIUM,K 3.6 mmol/L (3.5-5.1); PROTEIN TOTAL,TP 8.4 g/dL (6.4-8.2)
== END 2023-03-18 06:30 | disposition left against medical advice (07) | DRG 193 ==
LOC: MW.ED 08:56 → OBSVTOIN 14:11 → INTOOBSV 14:11 → MW.MS 14:11 → UNDOADMOB 14:11 → MW.MS 03-17 10:24 → OBSVTOIN 03-17 10:24 → MW.MS 03-17 15:48
PROVIDERS: ADMIT Family Medicine; ATTEND Family Medicine
DX: J18.9 Pneumonia, unspecified organism (principal); I50.33 Acute on chronic diastolic (congestive) heart failure; J96.01 Acute respiratory failure with hypoxia; I48.21 Permanent atrial fibrillation; E03.9 Hypothyroidism, unspecified; E66.9 Obesity, unspecified; I50.810 Right heart failure, unspecified; F10.10 Alcohol abuse, uncomplicated; J40 Bronchitis, not specified as acute or chronic; N40.0 Benign prostatic hyperplasia without lower urinary tract symptoms; J98.01 Acute bronchospasm; Z96.619 Presence of unspecified artificial shoulder joint; Z96.649 Presence of unspecified artificial hip joint; Z11.52 Encounter for screening for COVID-19; Z79.01 Long term (current) use of anticoagulants; Z90.49 Acquired absence of other specified parts of digestive tract; Z68.29 Body mass index [BMI] 29.0-29.9, adult; Z91.148 Patient's other noncompliance with medication regimen for other reason; Z79.899 Other long term (current) drug therapy; Z79.890 Hormone replacement therapy
CPT/HCPCS: 36415; 71045; 71045-26; 71275; 71275-26; 80053; 81003; 83735; 83880; 84484; 85025; 85379; 85610; 87040; 93005; 93010; 93306; 96365; 96367; 96374; 96375; 96376; 99284; 99285-25; A9270-GY; C9113; G0378; J0456; J0696; J1940; J2920; J2930; J3490; J7050; J7620-GY; Q9967; U0002

== ENCOUNTER 2023-09-04 10:06 | Emergency (ER) | payer OTHER, MEDICARE ==
[2023-09-04] MEDS: LORazepam 1 MG Tab PO ONE (10:14)
[2023-09-04 10:38] LABS: BASOPHILS ABSOLUTE AUTO 0.08 K/uL (0.00-0.20); BASOPHILS PERCENT AUTO 1.9 % (0.0-1.0); EOSINOPHILS ABSOLUTE AUTO 0.67 K/uL (0.00-0.45); EOSINOPHILS PERCENT AUTO 16.3 % (0.0-6.0); HEMATOCRIT 39.6 % (42.0-52.0); HEMOGLOBIN 12.9 g/dL (14.0-18.0); IMMATURE GRAN ABSOLUTE AUTO 0.01 K/uL (0.00-0.05); IMMATURE GRAN PERCENT AUTO 0.2 % (0.0-0.4); LYMPHOCYTES ABSOLUTE AUTO 1.09 K/uL (1.00-4.80); LYMPHOCYTES PERCENT AUTO 26.5 % (24.0-44.0); MEAN CORPUSCULAR HEMOGLOBIN 31.7 pg (28.0-32.0); MEAN CORPUSCULAR HGB CONC 32.6 g/dL (32.0-36.0); MEAN CORPUSCULAR VOLUME 97.3 fL (83.0-99.0); MEAN PLATELET VOLUME 10.2 fL (9.4-12.4); MONOCYTES ABSOLUTE AUTO 0.67 K/uL (0.00-0.80); MONOCYTES PERCENT AUTO 16.3 % (0.0-8.0); NEUTROPHILS ABSOLUTE AUTO 1.59 K/uL (1.80-7.70); NEUTROPHILS PERCENT AUTO 38.8 % (41.0-71.0); PLATELET COUNT,PLT 211 K/uL (150-400); RED BLOOD CELL COUNT 4.07 M/uL (4.52-5.90); WHITE BLOOD CELL COUNT,WBC 4.11 K/uL (3.9-11.3)
[2023-09-04 10:51] LABS: INR 2.45 (0.86-1.11)
[2023-09-04 11:02] LABS: CALCIUM 9.3 mg/dL (8.5-10.1); CARBON DIOXIDE,CO2 28.2 mmol/L (21.0-32.0); CREATININE 1.4 mg/dL (0.8-1.3); EST CRCL DRUG DOSING (CG) 41.57 mL/min; POTASSIUM,K 4.4 mmol/L (3.5-5.1)
== END 2023-09-04 12:35 | disposition home or self-care (01) ==
LOC: MW.ED 10:06
DX: S09.90XA Unspecified injury of head, initial encounter (principal); H53.2 Diplopia; I50.9 Heart failure, unspecified; I48.91 Unspecified atrial fibrillation; E03.9 Hypothyroidism, unspecified; E66.9 Obesity, unspecified; Z79.01 Long term (current) use of anticoagulants; Z79.890 Hormone replacement therapy; Z79.899 Other long term (current) drug therapy; Z68.26 Body mass index [BMI] 26.0-26.9, adult; W18.40XA Slipping, tripping and stumbling without falling, unspecified, initial encounter; Y92.009 Unspecified place in unspecified non-institutional (private) residence as the place of occurrence of the external cause
CPT/HCPCS: 36415; 70450; 70450-26; 80048; 85025; 85610; 99284